=== PATIENT | male | born 1985 | race Caucasian/White ===

== ENCOUNTER 2022-05-09 12:36 | Emergency (ER) | payer BC, SELFPAY ==
[2022-05-09 13:16] VITALS: BP 156/99; PULSE 81; RESP 18; TEMP 36.9; O2SAT 98; BMI 60.3
[2022-05-09 14:22] LABS: PCR FLU A POSITIVE PCR FLU A (Negative); PCR FLU B Negative PCR FLU B (Negative); PCR RSV Negative PCR RSV (Negative)
[2022-05-09 14:27] LABS: SARS PCR* Negative SARS-CoV-2 (Negative)
--- NOTE | 2022-05-09 14:48 | ED.GENADULT ---
HPI - General Adult General Time Seen by Provider: 14:48 Date Seen: 05/09/22 Chief complaint: Cough Stated complaint: Shortness of breath, coughing up stuff Time Seen by Provider: 05/09/22 14:45 Source: patient and RN notes reviewed Mode of arrival: ambulatory Limitations: no limitations History of Present Illness HPI narrative: Patient is a 37-year-old male coming in with upper respiratory illness and concern for his breathing. He started with a cough this last Tuesday, today is Tuesday. he felt like his chest was heavier and his asthma was worsening. He has underlying obstructive sleep apnea using a CPAP and has asthma. He is on baseline maintenance inhalers, see Symbicort and Advair listed. He also takes Singulair per report. He has been having to use his rescue inhaler much more frequently. He does have a nebulizer at home and is out of albuterol nebs. He wonders if I would refill this. He has felt more short of breath, coughing more. Had fevers on Tuesday but not since then. His has been sick but is on the mend. He had the triple viral swab done during triage and I am able to review with him that he has influenza A. We have reviewed since his symptoms started on Tuesday, he is well out of the guide lying treatment window of 48 hours. His pulse oximetry was excellent on arrival. I did place it back on in the room well I was talking to him and he is 96-97% on room air. Notes no calf pain, no increased swelling of his lower extremities. He states his hypertensive medicine takes care of his swelling per his report. Patient is actually interested in getting some prednisone and albuterol nebs for at home. Related Data Home Medications Medication Instructions Recorded Confirmed albuterol sulfate 90 mcg/actuation inhalation 05/09/22 aerosol inhaler budesonide-formoterol HFA 160 inhalation 05/09/22 mcg-4.5 mcg/actuation aerosol inhaler (Symbicort) diclofenac sodium 75 mg mg PO 05/09/22 tablet,delayed release fluoxetine 10 mg tablet mg 05/09/22 fluticasone propionate 230 inhalation 05/09/22 mcg-salmeterol 21 mcg/actuation HFA inhaler (Advair HFA) losartan 100 tab 05/09/22 mg-hydrochlorothiazide 25 mg tablet montelukast 10 mg tablet mg 05/09/22 Previous Rx's Medication Instructions Recorded albuterol sulfate 2.5 mg/0.5 mL 5 mg inhalation QID PRN #30 ea 05/09/22 solution for nebulization prednisone 20 mg tablet 20 mg PO BID #10 tabs 05/09/22 Allergies Allergy/AdvReac Type Severity Reaction Status Date / Time amoxicillin Allergy Verified 05/09/22 13:13 Review of Systems Status of ROS: Reports: 6 or more systems reviewed and unremarkable except as noted in History and below Exam Const: Vital Signs, click to edit/add: Vital Signs - 24 hr 05/09/22 13:16 Temperature 98.4 F Pulse Rate [Right Pulse Oximeter] 81 Respiratory Rate 18 Blood Pressure [Ri ght Upper Arm] 156/99 H Pulse Oximetry 98 Oxygen Delivery Me thod Room Air Documenting provider has reviewed patient's vital signs: yes Common normals: no apparent distress, oriented x3, no limitations, healthy appearing, alert and well nourished General appearance: cooperative, comfortable and well kempt Nutritional appearance: obese Other: This patient is able to speak in complete sentences, no significant coughing willing with him. No voice hoarseness. Looks well. HENMT: Common normals: normocephalic, head/scalp atraumatic, hearing grossly normal bilaterally, external ears normal, TM's normal bilaterally, external nose normal and nasal mucous membranes and turbinates normal Head and scalp: normocephalic and atraumatic Nose: external nose normal and nasal mucous membranes and turbinates normal External ear: external ears normal Tympanic membrane: TM's normal bilaterally Eye: Common normals: PERRL, EOMs intact bilaterally, conjunctivae normal and no scleral icterus Conjunctiva: conjunctiva(e) normal Pupil: PERRL Neck & C-Spine: Common normals: full ROM, no lymphadenopathy, supple and no JVD Resp: Common normals: normal respiratory effort, no retractions, no use of accessory muscles and clear to auscultation bilaterally Auscultation: clear to auscultation bilaterally Cardio: Common normals: no JVD, regular rate, regular rhythm, S1 normal heart sound, S2 normal heart sound, no gallops, no clicks and no murmurs Rate: regular rate Rhythm: regular rhythm Heart sounds: S1 normal and S2 normal Neuro: Common normals: oriented x3 Sensorium/orientation: alert Psych: Appearance: well kempt Course Vital Signs Vital signs: Initial Vital Signs Temperature 98.4 F 05/09/22 13:16 Temperature Source Temporal Artery Scan 05/09/22 13:16 Pulse Rate 81 05/09/22 13:16 Respiratory Rate 18 05/09/22 13:16 Blood Pressure 156/99 H 05/09/22 13:16 Blood Pressure Mean 118 05/09/22 13:16 Blood Pressure Position Sitting 05/09/22 13:16 Pulse Oximetry 98 05/09/22 13:16 Oxygen Delivery Method 05/09/22 13:16 Vital Signs Temperature 98.4 F 05/09/22 13:16 Pulse Rate 81 05/09/22 13:16 Respiratory Rate 18 05/09/22 13:16 Blood Pressure 156/99 H 05/09/22 13:16 Pulse Oximetry 98 05/09/22 13:16 Oxygen Delivery Method 05/09/22 13:16 Temperature 98.4 F 05/09/22 13:16 Pulse Rate 81 05/09/22 13:16 Respiratory Rate 18 05/09/22 13:16 Blood Pressure 156/99 H 05/09/22 13:16 Pulse Oximetry 98 05/09/22 13:16 Oxygen Delivery Method 05/09/22 13:16 Medical Decision Making Lab Data Lab results reviewed: Yes I reviewed the patient's lab results Labs: Lab Results 05/09/22 Range/Units 13:30 SARS-CoV-2 (PCR) Negative SARS-CoV-2 (Negative) Influenza Type A (PCR) POSITIVE PCR FLU A A (Negative) Influenza Type B (PCR) Negative PCR FLU B (Negative) RSV (PCR) Negative PCR RSV (Negative) Critical Care Time Critical Care Time Critical Care Time: No Discharge Plan Discharge Clinical Impression: Influenza A, Asthma Patient Disposition: Home, Self-Care Condition: Stable Instructions: Influenza (ED) Additional Instructions: Given that you are beyond 48 hours of influenza symptoms and her stable, we are not initiating Tamiflu as it is not likely to be beneficial at all. We will initiate prednisone, take as prescribed, take with food to protect your stomach. Have sent in albuterol nebs for you. Continue on your asthma medicines as prescribed. If you are not improving over the next week, have worsening shortness of breath, coughing, develops fever, feel like you are clinically worsening, please seek re-evaluation. Activity Level: No Restrictions and Activity as Tolerated Prescriptions: New albuterol sulfate 2.5 mg/0.5 mL solution for nebulization 5 mg inhalation QID PRNQty: 30 0RF prednisone 20 mg tablet 20 mg PO BID Qty: 10 0RF No Action fluoxetine 10 mg tablet Label Comments: TAKE 1 TABLET BY MOUTH DAILY losartan-hydrochlorothiazide 100-25 mg tablet Label Comments: TAKE 1 TABLET BY MOUTH DAILY diclofenac sodium 75 mg tablet,delayed release (DR/EC) PO Label Comments: TAKE 1 TABLET BY MOUTH TWICE DAILY WITH MEALS montelukast 10 mg tablet Label Comments: TAKE 1 TABLET BY MOUTH AT BEDTIME albuterol sulfate 90 mcg/actuation HFA aerosol inhaler INHALATION Label Comments: INHALE 2 PUFFS BY MOUTH EVERY 4 HOURS NEEDED Advair HFA 230-21 mcg/actuation HFA aerosol inhaler INHALATION Label Comments: INHALE 2 PUFFS BY MOUTH TWICE DAILY budesonide-formoterol [Symbicort] 160-4.5 mcg/actuation HFA aerosol inhaler INHALATION Label Comments: INHALE 2 PUFFS BY MOUTH TWICE DAILY Follow Up/Referrals: Mike Boyce MD [Referring] - Stand Alone Forms: [employer] Info Instructions
== END 2022-05-09 15:42 | disposition home or self-care (01) ==
LOC: ED 15:12
PROVIDERS: Emergency Provider Family Medicine
DX: J09.X2 Influenza due to identified novel influenza A virus with other respiratory manifestations (principal); J45.909 Unspecified asthma, uncomplicated
CPT/HCPCS: 87502; 87634; 87635; 99283; 99284

== ENCOUNTER 2022-10-06 14:26 | Outpatient (CLI) | payer BC, SELFPAY | END 2022-10-06 14:27 | disposition home or self-care (01) | PROVIDERS: Visit Provider Physician Assistant Medical | DX: Z00.00 Encounter for general adult medical examination without abnormal findings (principal); E66.01 Morbid (severe) obesity due to excess calories; I10 Essential (primary) hypertension; F32.A Depression, unspecified | CPT/HCPCS: 80053; 80061; 84443 ==

== ENCOUNTER 2024-02-02 07:32 | Outpatient (CLI) | payer BC, SELFPAY | END 2024-02-02 07:33 | disposition home or self-care (01) | LOC: NFLDREF 02-04 17:37 | PROVIDERS: PCP Physician Assistant Medical; Referring Provider Physician Assistant Medical; Visit Provider Physician Assistant Medical | DX: E66.01 Morbid (severe) obesity due to excess calories (principal); I10 Essential (primary) hypertension; Z68.44 Body mass index [BMI] 60.0-69.9, adult | CPT/HCPCS: 80053; 80061; 84443 ==

== ENCOUNTER 2025-01-02 08:50 | Outpatient (CLI) | payer OTHER, SELFPAY | END 2025-01-02 08:51 | disposition home or self-care (01) | LOC: NFLDREF 01-03 02:54 | PROVIDERS: PCP Physician Assistant Medical; Referring Provider Physician Assistant Medical; Visit Provider Physician Assistant Medical | DX: Z00.00 Encounter for general adult medical examination without abnormal findings (principal); F32.4 Major depressive disorder, single episode, in partial remission; I10 Essential (primary) hypertension; E78.2 Mixed hyperlipidemia; R79.89 Other specified abnormal findings of blood chemistry | CPT/HCPCS: 80053; 80061; 84443 ==